=== PATIENT | female | born 1965 | race African-American/Black ===

== ENCOUNTER 2017-04-19 14:14 | Emergency (ER) | payer MEDICAID, OTHER ==
[~2017-04-19] VITALS: Ht 167.6 cm; Wt 110.0 kg
[2017-04-19] MEDS ORDERED: LEVO25TA7 PO (14:27)
[2017-04-19] MEDS ORDERED: ACETAMINOPHEN WITH CODEINE 300/30MG TABLET PO ONE (16:30)
[2017-04-19] MEDS ORDERED: KETOROLAC 60MG/2ML VIAL IM ONE (16:30)
[2017-04-19] MEDS ORDERED: DIPHENHYDRAMINE 50MG/ML VIAL IV ONE (18:15)
[2017-04-19] MEDS ORDERED: MORPHINE SULFATE 4 MG/ML CPJ (NOT FOR IM USE) IV ONE (18:15)
[2017-04-19 21:35] VITALS: BP 140/76
== END 2017-04-19 21:44 | disposition home or self-care (01) ==
LOC: ER 14:32
DX: M54.42 Lumbago with sciatica, left side (principal); E03.9 Hypothyroidism, unspecified; Z88.0 Allergy status to penicillin; Z88.5 Allergy status to narcotic agent
CPT/HCPCS: 81025; 96372; 96374; 96375; 99284; J1200; J1885; J2270; Z7610